=== PATIENT | female | born 1990 | race Caucasian/White ===

== ENCOUNTER → 2024-10-24 | Outpatient (CLI) | payer MEDICAID, SELFPAY ==
--- NOTE | 2024-10-24 11:44 | XR_ITS ---
Examination: Complete OB ultrasound, less than 14 weeks, transabdominal Date and time of exam: October 24, 2024 1150 hours INDICATIONS: Diagnosis supervision of normal Technique: Obstetrical ultrasound images less than 14 weeks performed via transabdominal imaging Findings: A normal shaped single intrauterine gestation is present in the uterus. CRL 5.0 cm corresponds to 11 weeks 5 day gestational age Cardiac motion 167 BPM Ultrasonographic survey of visible and placental structures unremarkable. Amniotic fluid volume appears appropriate for this estimated gestational age. Right ovary 3.1 cm arterial flow Left ovary 3.1 cm arterial flow IMPRESSION: Viable intrauterine gestation 11 weeks 5 days.
== END | disposition home or self-care (01) ==
LOC: SDIM 11:34
PROVIDERS: PCP Obstetrics & Gynecology; Referring Provider Obstetrics & Gynecology; Visit Provider Obstetrics & Gynecology
DX: O45.93 Premature separation of placenta, unspecified, third trimester (principal); Z3A.11 11 weeks gestation of pregnancy
CPT/HCPCS: 76801

== ENCOUNTER → 2025-02-24 | Outpatient (CLI) | payer MEDICAID, SELFPAY ==
--- NOTE | 2025-02-24 15:15 | XR_ITS ---
Examination: Complete OB ultrasound greater than 14 weeks Date and time of exam: February 24, 2025 1513 hours INDICATIONS: Short-term follow-up for visualization nose lips facial profile orbits on prior study Findings: Viable intrauterine single fetus with single amniotic sac presentation cephalic spine anterior Cardiac motion 147 BPM Placenta anterior grade 1 Umbilical cord insertion seen Amniotic fluid index 13.8 cm Cervix 3.7 cm Orbits nose and mouth and profile unremarkable Cervix 3.7 cm. Composite estimated gestational age based on BPD, head circumference, abdominal circumference, femur length is 29 weeks 1 day Estimated weight 1243 g. Survey of intracranial anatomy, spinal anatomy, abdominal anatomy, four-chamber heart performed with no abnormalities identified. Impression: Viable intrauterine gestation cephalic presentation.
== END | disposition home or self-care (01) ==
DX: Z34.90 Encounter for supervision of normal pregnancy, unspecified, unspecified trimester (principal)
CPT/HCPCS: 76805